=== PATIENT | female | born 1960 | race Caucasian/White ===

== ENCOUNTER 2019-06-21 08:50 | Inpatient (IN) | payer OTHER ==
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
[2019-06-21] MEDS ORDERED: BISMUTH SUBSALICYLATE 262 MG/15 ML BTL PO PRN (12:03)
[2019-06-21] MEDS ORDERED: LORazepam 1 MG TABLET PO PRN (12:03)
[2019-06-21] MEDS ORDERED: MAGNESIUM HYDROX 2400MG/30ML ORAL SUSPENSION 30 ML CUP PO PRN (12:03)
[2019-06-21] MEDS ORDERED: ACETAMINOPHEN 325 MG TABLET (FP) PO PRN (12:03)
[2019-06-21] MEDS ORDERED: MAG HYDROX/AL HYDROX/SIMETH 30 ML UNIT-DOSE CUP PO PRN (12:03)
[2019-06-21] MEDS ORDERED: MENTHOL/PHENOL 1 EACH UD MM PRN (12:03)
[2019-06-21] MEDS ORDERED: MAGNESIUM CITRATE 300 ML BOTTLE PO PRN (12:03)
[2019-06-21 12:15] VITALS: BMI 29.4
[2019-06-21] MEDS: IBUPROFEN 400 MG TABLET (FP) PO PRN ×2 (13:25→22:19)
[2019-06-21] MEDS: METHOCARBAMOL 500 MG TABLET PO PRN ×2 (13:27→22:21)
[2019-06-21] MEDS: hydrOXYzine HCL 25 MG TABLET (FP) PO PRN (13:27)
--- NOTE | 2019-06-21 13:56 | EKG ---
Test Reason : Blood Pressure : / mmHG Vent. Rate : 066 BPM Atrial Rate : 066 BPM P-R Int : 168 ms QRS Dur : 092 ms QT Int : 440 ms P-R-T Axes : 078 050 052 degrees QTc Int : 461 ms NORMAL SINUS RHYTHM NORMAL ECG NO PREVIOUS ECGS AVAILABLE Confirmed by ANNMARIE BARRETT MD ([id number]) on 06/21/2019 1:55:59 PM Referred By: Confirmed By:ANNMARIE BARRETT MD
[2019-06-21 14:32] LABS: HEMATOCRIT 40.3 % (32.4-45.2); HEMOGLOBIN 13.2 GM/dL (10.7-15.3); MCH 31.4 pg (25.7-33.7); MCHC 32.9 g/dl (32.0-36.0); MEAN CELL VOLUME 95.5 fl (80-96); MEAN PLT VOLUME 8.7 fl (7.5-11.1); PLATELET COUNT 163 K/MM3 (134-434); RBC 4.22 M/mm3 (3.60-5.2); RDW 17.9 % (11.6-15.6); WHITE BLOOD COUNT 4.7 K/mm3 (4.0-10.0)
[2019-06-21 14:54] LABS: ALBUMIN 4.1 g/dl (3.4-5.0); BILIRUBIN,TOTAL 0.6 mg/dL (0.2-1); BLOOD UREA NITROGEN 9.2 mg/dL (7-18); CALCIUM 8.7 mg/dL (8.5-10.1); CREATININE 0.6 mg/dL (0.55-1.3); POTASSIUM 4.3 mmol/L (3.5-5.1); TOT PROT 7.7 g/dl (6.4-8.2)
[2019-06-21] MEDS: LORazepam 2 MG TABLET PO SCH ×2 (18:05→22:16)
[2019-06-21] MEDS: BUPRENORPHINE/NALOXONE 8 MG/2 MG FILM PACKET SL SCH (19:43)
[2019-06-21] MEDS: MELATONIN 5 MG TABLETS PO PRN (22:17)
[2019-06-21] MEDS: THIAMINE HCL 100 MG TABLET (FP) PO SCH (22:43)
[2019-06-22] MEDS: LORazepam 2 MG TABLET PO SCH ×4 (05:22→22:26)
[2019-06-22] MEDS: BUPRENORPHINE/NALOXONE 8 MG/2 MG FILM PACKET SL SCH ×2 (05:23→18:47)
[2019-06-22] MEDS: IBUPROFEN 400 MG TABLET (FP) PO PRN ×2 (05:23→22:28)
[2019-06-22] MEDS: PRENATAL VITAMINS W/ FOLIC ACID TABLET (FP) PO SCH (10:38)
[2019-06-22] MEDS: METHOCARBAMOL 500 MG TABLET PO PRN ×2 (10:40→22:29)
--- NOTE | 2019-06-22 11:49 | PN ---
S CIWA - CIWA Score Nausea/Vomitin-No Nausea/No Vomiting Muscle Tremors: 2 Anxiety: 2 Agitation: 0-Normal Activity Paroxysmal Sweats: 3 Orientation: 0-Oriented Tacttile Disturbances: 0-None Auditory Disturbances: 0-None Visual Disturbances: 0-None Headache: 2-Mild CIWA-Ar Total Score: 9 S Progress Note (SOAP) Subjective: c/o headache, sweats, chills, and anxiety. Objective: 06/22/19 11:48 Vital Signs 06/22/19 06/22/19 07:07 09:52 Temperature 98.1 F 97.5 F L Pulse Rate 64 69 Respiratory 18 18 Rate Blood Pressure 130/82 140/77 Lab Results WBC 4.7 K/mm3 (4.0-10.0) 06/21/19 12:30 RBC 4.22 M/mm3 (3.60-5.2) 06/21/19 12:30 Hgb 13.2 GM/dL (10.7-15.3) 06/21/19 12:30 Hct 40.3 % (32.4-45.2) 06/21/19 12:30 MCV 95.5 fl (80-96) 06/21/19 12:30 MCHC 32.9 g/dl (32.0-36.0) 06/21/19 12:30 RDW 17.9 % (11.6-15.6) H 06/21/19 12:30 Plt Count 163 K/MM3 (134-434) 06/21/19 12:30 Sodium 140 mmol/L (136-145) 06/21/19 12:30 Potassium 4.3 mmol/L (3.5-5.1) 06/21/19 12:30 Chloride 103 mmol/L (98-107) 06/21/19 12:30 Carbon Dioxide 26 mmol/L (21-32) 06/21/19 12:30 Anion Gap 10 MMOL/L (8-16) 06/21/19 12:30 BUN 9.2 mg/dL (7-18) 06/21/19 12:30 Creatinine 0.6 mg/dL (0.55-1.3) 06/21/19 12:30 Random Glucose 86 mg/dL (74-106) 06/21/19 12:30 Calcium 8.7 mg/dL (8.5-10.1) 06/21/19 12:30 Labs noted. Assessment: 06/22/19 11:48 AOX3, in no acute distress. Full ROM, ambulating in the unit. Withdrawal symptoms. Plan: continue detox.
[2019-06-22] MEDS: hydrOXYzine HCL 25 MG TABLET (FP) PO PRN (16:34)
[2019-06-22] MEDS: THIAMINE HCL 100 MG TABLET (FP) PO SCH (22:27)
[2019-06-22] MEDS: MELATONIN 5 MG TABLETS PO PRN (22:29)
[2019-06-23] MEDS: BUPRENORPHINE/NALOXONE 8 MG/2 MG FILM PACKET SL SCH ×2 (05:39→18:16)
[2019-06-23] MEDS: LORazepam 1 MG TABLET PO SCH ×4 (05:39→22:48)
[2019-06-23] MEDS: METHOCARBAMOL 500 MG TABLET PO PRN ×3 (05:41→22:49)
[2019-06-23] MEDS: PRENATAL VITAMINS W/ FOLIC ACID TABLET (FP) PO SCH (10:49)
--- NOTE | 2019-06-23 17:45 | PN ---
[facility] CIWA - CIWA Score Nausea/Vomitin-Mild Nausea/No Vomiting Muscle Tremors: 3 Anxiety: 2 Agitation: 2 Paroxysmal Sweats: 3 Orientation: 0-Oriented Tacttile Disturbances: 0-None Auditory Disturbances: 0-None Visual Disturbances: 0-None Headache: 0-None Present CIWA-Ar Total Score: 11 [facility] Progress Note (SOAP) Subjective: Tremor, sweating, anxious, right foot pain (stated had xray), headache 5/10, interrupted sleep Objective: 06/23/19 17:43 Last Vital Signs Temp Pulse Resp BP Pulse Ox 97.0 F L 72 18 135/84 06/23/19 13:57 06/23/19 13:57 06/23/19 13:57 06/23/19 13:57 Elevated b/p (denies htn) Laboratory Tests 06/21/19 06/21/19 06/21/19 12:30 12:30 12:30 WBC 4.7 RBC 4.22 Hgb 13.2 Hct 40.3 MCV 95.5 MCH 31.4 MCHC 32.9 RDW 17.9 H Plt Count 163 MPV 8.7 Sodium 140 Potassium 4.3 Chloride 103 Carbon Dioxide 26 Anion Gap 10 BUN 9.2 Creatinine 0.6 Est GFR (CKD-EPI)AfAm 116.45 Est GFR (CKD-EPI)NonAf 100.47 Random Glucose 86 Calcium 8.7 Total Bilirubin 0.6 AST 35 ALT 32 Alkaline Phosphatase 124 H Total Protein 7.7 Albumin 4.1 TSH Free T4 0.81 Resin T3 Uptake RPR Titer Nonreactive 06/21/19 12:30 WBC RBC Hgb Hct MCV MCH MCHC RDW Plt Count MPV Sodium Potassium Chloride Carbon Dioxide Anion Gap BUN Creatinine Est GFR (CKD-EPI)AfAm Est GFR (CKD-EPI)NonAf Random Glucose Calcium Total Bilirubin AST ALT Alkaline Phosphatase Total Protein Albumin TSH 7.03 H Free T4 Resin T3 Uptake 33.6 RPR Titer Labs reviewed: elevated TSH Assessment: 06/23/19 17:47 Withdrawal sxs Noted with elevated TSH level Plan: Continue detox Encourage PO water intake Hypothyroidism: resume synthroid at 25mcg PO daily at 0700 (home dose unknown, as per admission H&P, patient has pmhx of hypothyroidism and stopped taking medication 1 month ago). Patient to follow up with PCP post discharge for management.
[2019-06-23] MEDS: MELATONIN 5 MG TABLETS PO PRN (22:48)
[2019-06-23] MEDS: THIAMINE HCL 100 MG TABLET (FP) PO SCH (22:48)
[2019-06-23] MEDS: ACETAMINOPHEN 325 MG TABLET (FP) PO PRN (22:49)
[2019-06-24] MEDS: LORazepam 0.5 MG TABLET PO PRN ×2 (01:48→15:52)
[2019-06-24] MEDS: LORazepam 0.5 MG TABLET PO SCH ×4 (06:15→22:27)
[2019-06-24] MEDS: ACETAMINOPHEN 325 MG TABLET (FP) PO PRN (06:16)
[2019-06-24] MEDS: BUPRENORPHINE/NALOXONE 8 MG/2 MG FILM PACKET SL SCH ×2 (06:16→19:09)
[2019-06-24] MEDS: LEVOTHYROXINE NA 25 MCG TABLET (FP) PO SCH (10:12)
[2019-06-24] MEDS: PRENATAL VITAMINS W/ FOLIC ACID TABLET (FP) PO SCH (10:12)
[2019-06-24] MEDS ORDERED: ONDANSETRON *ODT* 4 MG TABLET SL PRN (10:37)
--- NOTE | 2019-06-24 10:37 | PN ---
S CIWA - CIWA Score Nausea/Vomitin-Mild Nausea/No Vomiting Muscle Tremors: 3 Anxiety: 1-Mildly Anxious Agitation: 2 Paroxysmal Sweats: No Perspiration Orientation: 0-Oriented Tacttile Disturbances: 0-None Auditory Disturbances: 0-None Visual Disturbances: 0-None Headache: 0-None Present CIWA-Ar Total Score: 7 [facility] Progress Note (SOAP) Subjective: nausea muscle cramping Objective: 06/24/19 10:36 Vital Signs Temperature 97.2 F L 06/24/19 09:27 Pulse Rate 60 06/24/19 09:27 Respiratory Rate 18 06/24/19 09:27 Blood Pressure 114/80 06/24/19 09:27 O2 Sat by Pulse Oximetry (%) Laboratory Tests 06/21/19 06/21/19 06/21/19 12:30 12:30 12:30 WBC 4.7 RBC 4.22 Hgb 13.2 Hct 40.3 MCV 95.5 MCH 31.4 MCHC 32.9 RDW 17.9 H Plt Count 163 MPV 8.7 Sodium 140 Potassium 4.3 Chloride 103 Carbon Dioxide 26 Anion Gap 10 BUN 9.2 Creatinine 0.6 Est GFR (CKD-EPI)AfAm 116.45 Est GFR (CKD-EPI)NonAf 100.47 Random Glucose 86 Calcium 8.7 Total Bilirubin 0.6 AST 35 ALT 32 Alkaline Phosphatase 124 H Total Protein 7.7 Albumin 4.1 TSH Free T4 0.81 Resin T3 Uptake RPR Titer Nonreactive 06/21/19 12:30 WBC RBC Hgb Hct MCV MCH MCHC RDW Plt Count MPV Sodium Potassium Chloride Carbon Dioxide Anion Gap BUN Creatinine Est GFR (CKD-EPI)AfAm Est GFR (CKD-EPI)NonAf Random Glucose Calcium Total Bilirubin AST ALT Alkaline Phosphatase Total Protein Albumin TSH 7.03 H Free T4 Resin T3 Uptake 33.6 RPR Titer aaox3 lying in bed no acute distress Assessment: 06/24/19 10:36 mild withdrawal sx Plan: continue detox increase fluids flexiril 10mg tid prn ordered. d/c in am
[2019-06-24 10:54] LABS: PH,URINE 7.5 (5.0-8.0); URINE APPEARANCE CLEAR; URINE BILIRUBIN NEGATIVE (NEGATIVE); URINE COLOR YELLOW; URINE GLUCOSE (UA) NEGATIVE (NEGATIVE); URINE KETONE NEGATIVE (NEGATIVE); URINE LEUK ESTERASE NEGATIVE (NEGATIVE); URINE NITRITE NEGATIVE (NEGATIVE); URINE PROTEIN NEGATIVE (NEGATIVE); URINE UROBILINOGEN 0.2 mg/dL (0.2-1.0)
[2019-06-24] MEDS: hydrOXYzine HCL 25 MG TABLET (FP) PO PRN (15:51)
[2019-06-24] MEDS: CYCLOBENZAPRINE HCL 10 MG TABLET (FP) PO PRN (18:21)
[2019-06-24] MEDS: MELATONIN 5 MG TABLETS PO PRN (22:27)
[2019-06-24] MEDS: THIAMINE HCL 100 MG TABLET (FP) PO SCH (22:27)
[2019-06-25] MEDS ORDERED: LORazepam 0.5 MG TABLET PO ONE (05:00)
[2019-06-25] MEDS: BUPRENORPHINE/NALOXONE 8 MG/2 MG FILM PACKET SL SCH (06:05)
[2019-06-25] MEDS: CYCLOBENZAPRINE HCL 10 MG TABLET (FP) PO PRN (06:07)
[2019-06-25] MEDS: LEVOTHYROXINE NA 25 MCG TABLET (FP) PO SCH (07:30)
--- NOTE | 2019-06-25 09:27 | DS ---
[facility] Detox Discharge Summary Admission Date: 06/21/19 Discharge Date: 06/25/19 - History Present History: Alcohol Dependence - Physical Exam Results Vital Signs: Vital Signs Temperature 97.7 F 06/25/19 07:16 Pulse Rate 61 06/25/19 07:16 Respiratory Rate 20 06/25/19 07:16 Blood Pressure 115/70 06/25/19 07:16 O2 Sat by Pulse Oximetry (%) Pertinent Admission Physical Exam Findings: pt arrived in [facility] Laboratory Tests 06/21/19 06/21/19 06/21/19 12:30 12:30 12:30 WBC 4.7 RBC 4.22 Hgb 13.2 Hct 40.3 MCV 95.5 MCH 31.4 MCHC 32.9 RDW 17.9 H Plt Count 163 MPV 8.7 Sodium 140 Potassium 4.3 Chloride 103 Carbon Dioxide 26 Anion Gap 10 BUN 9.2 Creatinine 0.6 Est GFR (CKD-EPI)AfAm 116.45 Est GFR (CKD-EPI)NonAf 100.47 Random Glucose 86 Calcium 8.7 Total Bilirubin 0.6 AST 35 ALT 32 Alkaline Phosphatase 124 H Total Protein 7.7 Albumin 4.1 TSH Free T4 0.81 Resin T3 Uptake Urine Color Urine Appearance Urine pH Ur Specific Ezel Urine Protein Urine Glucose (UA) Urine Ketones Urine Blood Urine Nitrite Urine Bilirubin Urine Urobilinogen Ur Leukocyte Esterase RPR Titer Nonreactive TB (QFT) Incubation TB Test (QFT) Nil TB Test (QFT) Mitogen TB Test (QFT) Antigen TB Test (QFT) TB Positive Criteria 06/21/19 06/21/19 06/24/19 12:30 12:40 08:25 WBC RBC Hgb Hct MCV MCH MCHC RDW Plt Count MPV Sodium Potassium Chloride Carbon Dioxide Anion Gap BUN Creatinine Est GFR (CKD-EPI)AfAm Est GFR (CKD-EPI)NonAf Random Glucose Calcium Total Bilirubin AST ALT Alkaline Phosphatase Total Protein Albumin TSH 7.03 H Free T4 Resin T3 Uptake 33.6 Urine Color Yellow Urine Appearance Clear Urine pH 7.5 Ur Specific Ezel 1.018 Urine Protein Negative Urine Glucose (UA) Negative Urine Ketones Negative Urine Blood Negative Urine Nitrite Negative Urine Bilirubin Negative Urine Urobilinogen 0.2 Ur Leukocyte Esterase Negative RPR Titer TB (QFT) Incubation TB Test (QFT) Nil 0.10 TB Test (QFT) Mitogen >10.00 TB Test (QFT) Antigen 0.15 TB Test (QFT) Negative TB Positive Criteria today pt is aaox3 ambulating no acute distress no s/s of withdrawal sx - Treatment Hospital Course: Detox Protocol Followed, Detoxed Safely, Responded well, Discharged Condition Good, Rehab Referral Accepted Patient has Accepted a Rehab Referral to: pt referred to [facility] inpatient rehab - Medication Discharge Medications: Ambulatory Orders Buprenorphine HCl/Naloxone HCl [Suboxone 8 mg-2 mg Sl Tablets] 1 each SL BID 01/08 - Diagnosis (1) Alcohol dependence with uncomplicated withdrawal Current Visit: Yes Status: Chronic (2) Contusion of right foot Current Visit: Yes Status: Acute (3) Encounter for monitoring Suboxone maintenance therapy Current Visit: Yes Status: Chronic (4) Hepatitis C Current Visit: Yes Status: Chronic Qualifiers: Viral hepatitis chronicity: chronic Hepatic coma status: without hepatic coma Qualified Code(s): B18.2 - Chronic viral hepatitis C (5) History of back surgery Current Visit: Yes Status: Acute (6) History of bilateral knee replacement Current Visit: Yes Status: Acute (7) History of laparoscopic cholecystectomy Current Visit: Yes Status: Acute (8) Hypothyroidism Current Visit: Yes Status: Chronic Qualifiers: Hypothyroidism type: acquired Qualified Code(s): E03.9 - Hypothyroidism, unspecified - AMA Did Patient Leave Against Medical Advice: No
[2019-06-25 09:40] VITALS: BP 118/81; PULSE 81; TEMP 97.9
[2019-06-25] MEDS: PRENATAL VITAMINS W/ FOLIC ACID TABLET (FP) PO SCH (10:26)
[2019-06-25] MEDS: ACETAMINOPHEN 325 MG TABLET (FP) PO PRN (10:27)
[2019-06-25] MEDS: hydrOXYzine HCL 25 MG TABLET (FP) PO PRN (10:29)
== END 2019-06-25 12:38 | disposition other institution (70) | DRG 897 ==
LOC: YASAS 08:50 → Y6N 12:26
PROVIDERS: ADMIT Surgery; ATTEND Surgery
PROC: HZ2ZZZZ Detoxification Services for Substance Abuse Treatment (ICD-10-PCS; principal; 2019-06-21)
DX: F10.230 Alcohol dependence with withdrawal, uncomplicated (principal); F11.20 Opioid dependence, uncomplicated; E03.9 Hypothyroidism, unspecified; B18.2 Chronic viral hepatitis C; M79.671 Pain in right foot; S90.31XS Contusion of right foot, sequela; X58.XXXS Exposure to other specified factors, sequela
CPT/HCPCS: 36415; 73630-TC-RT-FY; 80053; 81003; 84439; 84443; 84479; 85027; 86480; 86593; 93005; 93010

== ENCOUNTER 2019-06-25 12:37 | Inpatient (IN) | payer OTHER ==
[2019-06-25] MEDS ORDERED: MENTHOL/PHENOL 1 EACH UD MM PRN (13:34)
[2019-06-25] MEDS ORDERED: ACETAMINOPHEN 325 MG TABLET (FP) PO PRN (13:34)
[2019-06-25] MEDS ORDERED: MAG HYDROX/AL HYDROX/SIMETH 30 ML UNIT-DOSE CUP PO PRN (13:34)
[2019-06-25] MEDS ORDERED: MAGNESIUM CITRATE 300 ML BOTTLE PO PRN (13:34)
[2019-06-25] MEDS ORDERED: LOPERAMIDE HCL 2 MG CAPSULE PO PRN (13:34)
[2019-06-25] MEDS ORDERED: P-EPHED 60MG/TRIPROLIDI 2.5MG TABLET PO PRN (13:34)
[2019-06-25] MEDS ORDERED: guaiFENesin 200 MG/10 ML 10 ML UNIT-DOSE CUPS PO PRN (13:34)
[2019-06-25] MEDS ORDERED: MAGNESIUM HYDROX 2400MG/30ML ORAL SUSPENSION 30 ML CUP PO PRN (13:34)
[2019-06-25] MEDS ORDERED: NICOTINE POLACRILEX 4 MG GUM BUC PRN (13:34)
--- NOTE | 2019-06-25 13:34 | HP ---
[facility] Rehab Assess/Revision - Admission History Admitted to Rehab [facility] - Findings Detox History & Physical reviewed: Yes Concur with findings: Yes Inpatient Rehab Admission - Rehab Decision to Admit Inpatient rehab admission?: Yes - Initial Determination Are CD services needed?: Yes Free of communicable disease: Yes Not in need of hospitalization: Yes - Rehab Admission Criteria Previous failed treatment: Yes Poor recovery environment: Yes Comorbidities: Yes Lacks judgement: Yes Patient is meeting Inpatient Rehab admission criteria:: Yes
[2019-06-25] MEDS: hydrOXYzine PAMOATE 50 MG CAPSULE (FP) PO PRN (17:10)
[2019-06-25] MEDS: BUPRENORPHINE/NALOXONE 8 MG/2 MG FILM PACKET SL SCH (19:06)
[2019-06-25] MEDS: IBUPROFEN 400 MG TABLET (FP) PO PRN (21:17)
[2019-06-25] MEDS: THIAMINE HCL 100 MG TABLET (FP) PO SCH (21:17)
[2019-06-25] MEDS ORDERED: MELATONIN 5 MG TABLETS PO PRN (22:00)
[2019-06-26] MEDS: LEVOTHYROXINE NA 25 MCG TABLET (FP) PO SCH (06:24)
[2019-06-26] MEDS: BUPRENORPHINE/NALOXONE 8 MG/2 MG FILM PACKET SL SCH ×2 (06:24→18:59)
[2019-06-26] MEDS: IBUPROFEN 400 MG TABLET (FP) PO PRN (06:25)
[2019-06-26] MEDS: NICOTINE 21 MG/24 HOURS TOPICAL PATCH TD SCH (10:12)
[2019-06-26] MEDS: PRENATAL VITAMINS W/ FOLIC ACID TABLET (FP) PO SCH (10:12)
[2019-06-26] MEDS: cloNIDine HCL 0.1 MG TABLET PO PRN ×2 (10:12→21:14)
[2019-06-26] MEDS: CYCLOBENZAPRINE HCL 10 MG TABLET (FP) PO SCH ×2 (13:32→21:14)
--- NOTE | 2019-06-26 14:08 | PN ---
S Progress Note (SOAP) Subjective: patient reports withdrawal symptoms. Was admitted yesterday to rehab, reports ETOH use, UTOX positive for benzodiazipine and suboxone. Presently on Suboxone , 8mg. But reporting feelings of anxiety, jittery, GI upset, generalized aches and pains. PMHx of bilateral knee replacement and chronic back pain. States she did not receive anything to relieve the withdrawal symptoms. However, review of the MAR indicates she receives vistaril, motrin, and is on suboxone. Objective: General: in no apparent distress, but anxious HEENT: PERRLA Heart: s1 s2 audible Lungs: clear Abd: soft, non-tender, +BS neuro: 2-12 intact, visible tremor in hands MSK: full ROM, full weight bearing, steady gait. 06/26/19 14:12 Assessment: Withdrawal symptoms, most likely from benzodiazpines 06/26/19 14:14 Plan: Reviewed and educated patient about medication regimen. Encouraged hydration, encouraged patient to take visteril, clonidine, motrin and other medications to alleviate symptoms as needed. Added flexeril to regimen. Will continue to monitor.
[2019-06-26] MEDS: hydrOXYzine PAMOATE 50 MG CAPSULE (FP) PO PRN (19:00)
[2019-06-26] MEDS: THIAMINE HCL 100 MG TABLET (FP) PO SCH (21:14)
[2019-06-27] MEDS: LEVOTHYROXINE NA 25 MCG TABLET (FP) PO SCH (06:33)
[2019-06-27] MEDS: CYCLOBENZAPRINE HCL 10 MG TABLET (FP) PO SCH ×3 (06:33→21:52)
[2019-06-27] MEDS: BUPRENORPHINE/NALOXONE 8 MG/2 MG FILM PACKET SL SCH ×2 (06:34→19:54)
[2019-06-27] MEDS: cloNIDine HCL 0.1 MG TABLET PO PRN ×2 (08:36→21:52)
--- NOTE | 2019-06-27 10:07 | CONSULT ---
[facility] Psychiatric Consult - Data Date of interview: 06/27/19 Admission source: 6N Identifying data: Ms Andres is a 59 years old single [place] female, unemployed receiving SSD, living with SO seeking rehab treatment for alcohol and benzodiazepine Substance Abuse History: Reports history of alcohol and xanax use. [place] addiction counselor's summary for further information Medical History: Significant for hypothyroidism, history of treatment for hepatitis C and surgeries(orhosurgery for bilateral knee replacement in 2008, left hip replacement in 2015, laminectomy in 1995 & 2013, lap cholecystectomy) Psychiatric History: Reports that her first psychiatric contact was between 1998 -1999 when she was diagnosed with depression and anxiety by a psychiatrist in [place]. Claims that depression and anxiety stemmed from chronic pain from her back. Since she has been receiving outpatient treatment on & off and she was tried of several medications including Zoloft and Paxil. Told creative services writer that for the past 8 months, she has been seeing a psychiatrist in the [place] and She is prescribed Suboxone and Xanax. Claims that she has been taking xanax as prescribe but wants to get off it. Denies previous psychiatric hospitalization or suicidal attempt. At present, reports feeling depressed, anxious and sleeping poorly Physical/Sexual Abuse/Trauma History: Denies history of emotional, physical or sexual abuse as well as DV relationship. Additional Comment: Reports history of 4 previous arrests including one felony conviction. Told creative services writer that she has a DUI case pending Mental Status Exam - Mental Status Exam Alert and Oriented to: Time, Place, Person Cognitive Function: Fair Patient Appearance: Well Groomed Mood: Depressed, Anxious Affect: Appropriate Patient Behavior: Cooperative Speech Pattern: Clear Voice Loudness: Normal Thought Process: Intact, Goal Oriented Thought Disorder: Not Present Hallucinations: Denies Suicidal Ideation: Denies Homicidal Ideation: Denies Insight/Judgement: Fair Sleep: Poorly Appetite: Poor Muscle strength/Tone: Normal Gait/Station: Normal Psychiatric Findings - Problem List ([place] 1, 2,3) (1) Depressive disorder Current Visit: Yes Status: Chronic (2) MDD (major depressive disorder) Current Visit: Yes Status: Ruled-out (3) Alcohol-induced mood disorder Current Visit: Yes Status: Acute (4) Alcohol-induced sleep disorder Current Visit: Yes Status: Acute (5) Alcohol dependence Current Visit: Yes Status: Acute (6) Sedative hypnotic or anxiolytic dependence Current Visit: Yes Status: Acute (7) History of back surgery Current Visit: No Status: Resolved (8) History of bilateral knee replacement Current Visit: No Status: Resolved (9) History of laparoscopic cholecystectomy Current Visit: No Status: Resolved (10) Hepatitis C Current Visit: No Status: Resolved Qualifiers: Viral hepatitis chronicity: chronic Hepatic coma status: without hepatic coma Qualified Code(s): B18.2 - Chronic viral hepatitis C (11) Hypothyroidism Current Visit: No Status: Chronic Qualifiers: Hypothyroidism type: acquired Qualified Code(s): E03.9 - Hypothyroidism, unspecified - Initial Treatment Plan Initial Treatment Plan: 1) Start Belsomra 10 mg po HS prn for insomnia. 2) Continue inpatient rehabilitation
[2019-06-27] MEDS: NICOTINE 21 MG/24 HOURS TOPICAL PATCH TD SCH (10:08)
[2019-06-27] MEDS: PRENATAL VITAMINS W/ FOLIC ACID TABLET (FP) PO SCH (10:08)
[2019-06-27] MEDS: hydrOXYzine PAMOATE 50 MG CAPSULE (FP) PO PRN ×2 (10:29→21:52)
[2019-06-27] MEDS: THIAMINE HCL 100 MG TABLET (FP) PO SCH (21:52)
[2019-06-27] MEDS ORDERED: SUVOREXANT 10 MG TABLET PO PRN (22:00)
[2019-06-28] MEDS: CYCLOBENZAPRINE HCL 10 MG TABLET (FP) PO SCH (06:25)
[2019-06-28] MEDS: BUPRENORPHINE/NALOXONE 8 MG/2 MG FILM PACKET SL SCH (06:25)
[2019-06-28] MEDS: LEVOTHYROXINE NA 25 MCG TABLET (FP) PO SCH (06:25)
[2019-06-28] MEDS: hydrOXYzine PAMOATE 50 MG CAPSULE (FP) PO PRN ×2 (06:26→10:46)
[2019-06-28 06:51] VITALS: BP 132/88; PULSE 81; TEMP 97.7
[2019-06-28] MEDS: NICOTINE 21 MG/24 HOURS TOPICAL PATCH TD SCH (10:07)
[2019-06-28] MEDS: cloNIDine HCL 0.1 MG TABLET PO PRN (10:10)
[2019-06-28] MEDS: PRENATAL VITAMINS W/ FOLIC ACID TABLET (FP) PO SCH (10:11)
--- NOTE | 2019-06-28 11:37 | PN ---
[facility] Progress Note (SOAP) Subjective: Informed by nurse richy that patient is for early discharge today due to insurance recommendation eligibiliy of follow up with OPD program. Pt completed detox for alcohol on on 06/25/19 before seeking treatment to rehab. Pt has a suboxone provider/psychiatrist Dr. Dodw. Pt will follow up with clinic visit today stating she is due for a visit. Pt reports she has other meds at home. Pt denies s/h/i. Objective: 06/28/19 11:29 Vital Signs - 24 hr 06/28/19 06/28/19 06/28/19 00:30 03:27 06:00 Temperature 97.7 F Pulse Rate 81 Respiratory 18 18 18 Rate Blood Pressure 132/88 Home Medications Medication Instructions Recorded Buprenorphine HCl/Naloxone HCl 1 each SL BID 06/21/19 [Suboxone 8 mg-2 mg Sl Tablets] Levothyroxine Sodium 25 mcg PO DAILY 06/25/19 Pt is alert o x 3, slightly anxious. Heent:Normocephalic, Patricia,Eomi,Ent-wnl Neck:Supple, FROM; No JVD Heart:s1 s2, rrr Lungs:cta, raina. Abdomen:Soft,+bs,nt,nd Extremities:No e/c/c Assessment: 06/28/19 11:33 Nad Medically Stable [facility] Inpatient Services Medical - Diagnosis (1) Alcohol dependence Qualifiers: Substance use status: uncomplicated Qualified Code(s): F10.20 - Alcohol dependence, uncomplicated Current Visit: Yes Status: Chronic (2) Sedative hypnotic or anxiolytic dependence Current Visit: Yes Status: Chronic (3) Encounter for monitoring Suboxone maintenance therapy Current Visit: Yes Status: Chronic (4) Hypothyroidism Qualifiers: Hypothyroidism type: acquired Qualified Code(s): E03.9 - Hypothyroidism, unspecified Current Visit: No Status: Chronic (5) Hepatitis C Qualifiers: Viral hepatitis chronicity: chronic Hepatic coma status: without hepatic coma Qualified Code(s): B18.2 - Chronic viral hepatitis C Current Visit: Yes Status: Resolved (6) History of bilateral knee replacement Current Visit: Yes Status: Resolved (7) History of laparoscopic cholecystectomy Current Visit: Yes Status: Resolved Initialized on 06/28/19 11:37 - END OF NOTE Plan: Early D/C today Pt will Follow up with suboxone prescriber, Dr. Dowd [facility] [address] [place], [place] today after discharge for clinic visit and for her RX. Follow up with CD aftercare at [facility] program as recommended on .
== END 2019-06-28 11:18 | disposition home or self-care (01) | DRG 895 ==
LOC: YASAS 12:37 → Y3E 12:42
PROVIDERS: ADMIT Neuromusculoskeletal Medicine & OMM; ATTEND Neuromusculoskeletal Medicine & OMM
PROC: HZ42ZZZ Group Counseling for Substance Abuse Treatment, Cognitive-Behavioral (ICD-10-PCS; principal; 2019-06-25)
DX: F10.20 Alcohol dependence, uncomplicated (principal); F13.20 Sedative, hypnotic or anxiolytic dependence, uncomplicated; F11.20 Opioid dependence, uncomplicated; F10.24 Alcohol dependence with alcohol-induced mood disorder; F10.282 Alcohol dependence with alcohol-induced sleep disorder; F32.9 Major depressive disorder, single episode, unspecified; E03.9 Hypothyroidism, unspecified; B18.2 Chronic viral hepatitis C; Z96.653 Presence of artificial knee joint, bilateral
CPT/HCPCS: J0735

== ENCOUNTER 2021-04-10 14:42 | Inpatient (IN) | payer OTHER ==
[2021-04-10] MEDS ORDERED: BISMUTH SUBSALICYLATE 524 MG/30 ML PO PRN (19:02)
[2021-04-10] MEDS ORDERED: MENTHOL/PHENOL 1 EACH UD MM PRN (19:02)
[2021-04-10] MEDS ORDERED: ONDANSETRON *ODT* 4 MG TABLET SL PRN (19:02)
[2021-04-10] MEDS ORDERED: ACETAMINOPHEN 325 MG TABLET (FP) PO PRN ×2 (19:02)
[2021-04-10] MEDS ORDERED: MAG HYDROX/AL HYDROX/SIMETH 30 ML UNIT-DOSE CUP PO PRN (19:02)
[2021-04-10] MEDS ORDERED: IBUPROFEN 400 MG TABLET (FP) PO PRN (19:02)
[2021-04-10] MEDS ORDERED: MAGNESIUM CITRATE 300 ML BOTTLE PO PRN (19:02)
[2021-04-10] MEDS ORDERED: MAGNESIUM HYDROX 2400MG/30ML ORAL SUSPENSION 30 ML CUP PO PRN (19:02)
[2021-04-10 21:00] VITALS: BMI 27.7
[2021-04-10] MEDS: LORazepam 2 MG TABLET PO SCH (22:40)
[2021-04-10] MEDS: hydrOXYzine PAMOATE 25 MG CAPSULE (FP) PO SCH (22:41)
[2021-04-10] MEDS: THIAMINE HCL 100 MG TABLET (FP) PO SCH (22:41)
[2021-04-10] MEDS: MELATONIN 5 MG TABLETS PO SCH (22:41)
[2021-04-10] MEDS: BUPRENORPHINE/NALOXONE 8 MG/2 MG FILM PACKET SL SCH (22:41)
[2021-04-10] MEDS: GABAPENTIN 300 MG CAPSULE PO SCH (22:41)
[2021-04-11] MEDS ORDERED: GABAPENTIN 300 MG CAPSULE PO ONE (09:13)
[2021-04-11] MEDS ORDERED: LORazepam 1 MG TABLET ONE (09:15)
[2021-04-11] MEDS ORDERED: IBUPROFEN 400 MG TABLET (FP) PO ONE (09:15)
[2021-04-11] MEDS: LORazepam 1 MG TABLET PO PRN (09:19)
[2021-04-11 11:06] LABS: HEMOGLOBIN 10.5 GM/dL (10.7-15.3); MCH 30.4 pg (25.7-33.7); MCHC 32.8 g/dl (32.0-36.0); MEAN CELL VOLUME 92.6 fl (80-96); MEAN PLT VOLUME 9.2 fl (7.5-11.1); PLATELET COUNT 241 K/MM3 (134-434); RBC 3.46 M/mm3 (3.60-5.2); RDW 16.7 % (11.6-15.6)
[2021-04-11 11:11] LABS: CALCIUM 8.5 mg/dL (8.5-10.1)
[2021-04-11 11:12] LABS: ALBUMIN 3.3 g/dl (3.4-5.0); BLOOD UREA NITROGEN 10.2 mg/dL (7-18)
[2021-04-11 11:15] LABS: CREATININE 0.5 mg/dL (0.55-1.3)
[2021-04-11 11:16] LABS: BILIRUBIN,TOTAL 0.5 mg/dL (0.2-1)
[2021-04-11] MEDS: PRENATAL VITAMINS W/ FOLIC ACID TABLET (FP) PO SCH (12:14)
[2021-04-11] MEDS: hydrOXYzine PAMOATE 25 MG CAPSULE (FP) PO SCH ×5 (12:15→22:11)
[2021-04-11] MEDS: LORazepam 2 MG TABLET PO SCH ×4 (12:16→22:12)
[2021-04-11] MEDS: GABAPENTIN 300 MG CAPSULE PO SCH ×3 (12:16→22:12)
[2021-04-11] MEDS: LEVOTHYROXINE NA 125 MCG TABLET (FP) PO SCH ×2 (12:17→15:35)
[2021-04-11] MEDS: METHOCARBAMOL 500 MG TABLET PO PRN (12:18)
[2021-04-11] MEDS: BUPRENORPHINE/NALOXONE 8 MG/2 MG FILM PACKET SL SCH ×3 (12:19→22:10)
[2021-04-11] MEDS: ROSUVASTATIN CA 5 MG TABLET (FP) PO SCH ×2 (14:09→15:30)
[2021-04-11] MEDS: THIAMINE HCL 100 MG TABLET (FP) PO SCH (22:11)
[2021-04-11] MEDS: MELATONIN 5 MG TABLETS PO SCH (22:11)
[2021-04-12] MEDS: GABAPENTIN 300 MG CAPSULE PO SCH ×3 (05:48→22:43)
[2021-04-12] MEDS: hydrOXYzine PAMOATE 25 MG CAPSULE (FP) PO SCH ×3 (05:48→13:03)
[2021-04-12] MEDS: LORazepam 1 MG TABLET PO SCH ×4 (05:49→22:43)
[2021-04-12] MEDS: LEVOTHYROXINE NA 125 MCG TABLET (FP) PO SCH (07:54)
[2021-04-12] MEDS ORDERED: ESCITALOPRAM OXALATE 10 MG TABLET ONE (09:01)
[2021-04-12] MEDS: ESCITALOPRAM OXALATE 20 MG TABLET PO SCH (09:18)
[2021-04-12] MEDS: METHOCARBAMOL 500 MG TABLET PO PRN ×2 (09:19→17:48)
[2021-04-12] MEDS: PRENATAL VITAMINS W/ FOLIC ACID TABLET (FP) PO SCH (09:19)
[2021-04-12] MEDS: BUPRENORPHINE/NALOXONE 8 MG/2 MG FILM PACKET SL SCH ×2 (09:19→22:46)
[2021-04-12] MEDS: LEVOTHYROXINE 100 MCG, LEVOTHYROXINE 25 MCG PO SCH (10:00)
[2021-04-12] MEDS: ROSUVASTATIN CA 5 MG TABLET (FP) PO SCH (10:00)
[2021-04-12] MEDS: IBUPROFEN 600 MG TABLET (FP) PO PRN (13:03)
[2021-04-12] MEDS: LORazepam 1 MG TABLET PO PRN ×2 (13:04→20:53)
[2021-04-12] MEDS ORDERED: hydrOXYzine PAMOATE 25 MG CAPSULE (FP) PO PRN (15:19)
[2021-04-12 20:34] LABS: PH,URINE 6.5 (5.0-8.0); URINE APPEARANCE CLEAR; URINE BILIRUBIN NEGATIVE (NEGATIVE); URINE COLOR YELLOW; URINE GLUCOSE (UA) NEGATIVE (NEGATIVE); URINE KETONE NEGATIVE (NEGATIVE); URINE LEUK ESTERASE NEGATIVE (NEGATIVE); URINE NITRITE NEGATIVE (NEGATIVE); URINE PROTEIN NEGATIVE (NEGATIVE); URINE UROBILINOGEN 0.2 mg/dL (0.2-1.0)
[2021-04-12] MEDS: THIAMINE HCL 100 MG TABLET (FP) PO SCH (22:43)
[2021-04-12] MEDS: MELATONIN 5 MG TABLETS PO SCH (22:43)
[2021-04-13] MEDS ORDERED: LORazepam 0.5 MG TABLET PO PRN
[2021-04-13] MEDS: LORazepam 0.5 MG TABLET PO SCH ×4 (05:45→22:04)
[2021-04-13] MEDS: GABAPENTIN 300 MG CAPSULE PO SCH ×3 (05:46→22:04)
[2021-04-13 06:08] LABS: SARS-CoV-2 NAA Not Detected (Not Detected)
[2021-04-13] MEDS: LEVOTHYROXINE 100 MCG, LEVOTHYROXINE 25 MCG PO SCH (08:10)
[2021-04-13] MEDS ORDERED: ESCITALOPRAM OXALATE 10 MG TABLET ONE (09:13)
[2021-04-13] MEDS: ESCITALOPRAM OXALATE 20 MG TABLET PO SCH (10:37)
[2021-04-13] MEDS: ROSUVASTATIN CA 5 MG TABLET (FP) PO SCH (10:37)
[2021-04-13] MEDS: BUPRENORPHINE/NALOXONE 8 MG/2 MG FILM PACKET SL SCH ×2 (10:38→22:05)
[2021-04-13] MEDS: PRENATAL VITAMINS W/ FOLIC ACID TABLET (FP) PO SCH (10:39)
[2021-04-13] MEDS ORDERED: MASKS NR ONE (20:05)
[2021-04-13] MEDS: MELATONIN 5 MG TABLETS PO SCH (22:04)
[2021-04-13] MEDS: THIAMINE HCL 100 MG TABLET (FP) PO SCH (22:05)
[2021-04-14] MEDS ORDERED: LORazepam 0.5 MG TABLET PO ONE (05:00)
[2021-04-14] MEDS: GABAPENTIN 300 MG CAPSULE PO SCH (06:01)
[2021-04-14] MEDS: LEVOTHYROXINE 100 MCG, LEVOTHYROXINE 25 MCG PO SCH (06:02)
[2021-04-14 08:45] VITALS: BP 124/69; PULSE 71; TEMP 96.8
[2021-04-14] MEDS: PRENATAL VITAMINS W/ FOLIC ACID TABLET (FP) PO SCH (09:38)
[2021-04-14] MEDS: BUPRENORPHINE/NALOXONE 8 MG/2 MG FILM PACKET SL SCH (09:38)
[2021-04-14] MEDS: ROSUVASTATIN CA 5 MG TABLET (FP) PO SCH (09:38)
[2021-04-14] MEDS: ESCITALOPRAM OXALATE 20 MG TABLET PO SCH (09:38)
[2021-04-14] MEDS: METHOCARBAMOL 500 MG TABLET PO PRN (12:38)
[2021-04-14] MEDS: IBUPROFEN 600 MG TABLET (FP) PO PRN (12:38)
== END 2021-04-14 12:40 | disposition other institution (70) | DRG 897 ==
LOC: YASAS 14:42 → Y3N 04-11 09:05
PROVIDERS: ADMIT Allergy & Immunology; ATTEND Allergy & Immunology
PROC: HZ2ZZZZ Detoxification Services for Substance Abuse Treatment (ICD-10-PCS; principal; 2021-04-11)
DX: F10.230 Alcohol dependence with withdrawal, uncomplicated (principal); F13.20 Sedative, hypnotic or anxiolytic dependence, uncomplicated; F10.280 Alcohol dependence with alcohol-induced anxiety disorder; F10.282 Alcohol dependence with alcohol-induced sleep disorder; F10.24 Alcohol dependence with alcohol-induced mood disorder; F32.9 Major depressive disorder, single episode, unspecified; Z21 Asymptomatic human immunodeficiency virus [HIV] infection status; B18.2 Chronic viral hepatitis C; E03.9 Hypothyroidism, unspecified; M54.5 Low back pain; G89.29 Other chronic pain; Z96.643 Presence of artificial hip joint, bilateral; Z98.890 Other specified postprocedural states; Z87.891 Personal history of nicotine dependence; Z51.81 Encounter for therapeutic drug level monitoring; Z90.49 Acquired absence of other specified parts of digestive tract
CPT/HCPCS: 36415; 80053; 81003; 85027; 86780; C9803; Q0162; U0003; U0005

== ENCOUNTER 2021-04-14 13:41 | Inpatient (IN) | payer OTHER ==
[2021-04-14] MEDS ORDERED: guaiFENesin 200 MG/10 ML 10 ML UNIT-DOSE CUPS PO PRN (15:10)
[2021-04-14] MEDS ORDERED: MAGNESIUM HYDROX 2400MG/30ML ORAL SUSPENSION 30 ML CUP PO PRN (15:10)
[2021-04-14] MEDS ORDERED: MAG HYDROX/AL HYDROX/SIMETH 30 ML UNIT-DOSE CUP PO PRN (15:10)
[2021-04-14] MEDS ORDERED: P-EPHED 60MG/TRIPROLIDI 2.5MG TABLET PO PRN (15:10)
[2021-04-14] MEDS ORDERED: LOPERAMIDE HCL 2 MG CAPSULE PO PRN (15:10)
[2021-04-14] MEDS ORDERED: MENTHOL/PHENOL 1 EACH UD MM PRN (15:10)
[2021-04-14] MEDS ORDERED: hydrOXYzine PAMOATE 25 MG CAPSULE (FP) PO PRN (15:10)
[2021-04-14] MEDS ORDERED: MAGNESIUM CITRATE 300 ML BOTTLE PO PRN (15:10)
[2021-04-14] MEDS: THIAMINE HCL 100 MG TABLET (FP) PO SCH (21:03)
[2021-04-14] MEDS: MELATONIN 5 MG TABLETS PO SCH (21:03)
[2021-04-14] MEDS: GABAPENTIN 300 MG CAPSULE PO SCH (21:03)
[2021-04-14] MEDS: IBUPROFEN 400 MG TABLET (FP) PO PRN (21:04)
[2021-04-14] MEDS: BUPRENORPHINE/NALOXONE 8 MG/2 MG FILM PACKET SL SCH (21:05)
[2021-04-15] MEDS: LEVOTHYROXINE 25 MCG, LEVOTHYROXINE 100 MCG PO SCH (06:12)
[2021-04-15] MEDS: GABAPENTIN 300 MG CAPSULE PO SCH ×3 (06:12→21:09)
[2021-04-15] MEDS ORDERED: LEVOTHYROXINE NA 125 MCG TABLET (FP) PO SCH (10:00)
[2021-04-15] MEDS: PRENATAL VITAMINS W/ FOLIC ACID TABLET (FP) PO SCH (10:29)
[2021-04-15] MEDS: ESCITALOPRAM OXALATE 20 MG TABLET PO SCH (10:29)
[2021-04-15] MEDS: ROSUVASTATIN CA 5 MG TABLET (FP) PO SCH (10:30)
[2021-04-15] MEDS: BUPRENORPHINE/NALOXONE 8 MG/2 MG FILM PACKET SL SCH ×2 (10:30→21:09)
[2021-04-15] MEDS: IBUPROFEN 400 MG TABLET (FP) PO PRN ×2 (10:32→21:09)
[2021-04-15] MEDS ORDERED: PNEUMOC 13-VAL CONJ-DIP CRM/PF 0.5 ML DISP.SYRIN IM ONE (12:00)
[2021-04-15] MEDS ORDERED: PNEUMOCOCCAL 23 VACCINE 0.5 ML VIAL IM ONE (12:00)
[2021-04-15] MEDS: METHOCARBAMOL 500 MG TABLET PO PRN ×2 (17:34→21:09)
[2021-04-15] MEDS: THIAMINE HCL 100 MG TABLET (FP) PO SCH (21:09)
[2021-04-15] MEDS: MELATONIN 5 MG TABLETS PO SCH (21:10)
[2021-04-16] MEDS: METHOCARBAMOL 500 MG TABLET PO PRN ×3 (06:24→18:09)
[2021-04-16] MEDS: IBUPROFEN 400 MG TABLET (FP) PO PRN ×2 (06:24→13:14)
[2021-04-16] MEDS: GABAPENTIN 300 MG CAPSULE PO SCH ×3 (06:24→21:41)
[2021-04-16] MEDS ORDERED: PT OWN MED DRAWER 7, Y5N ONE ×2 (06:27→21:51)
[2021-04-16] MEDS: LEVOTHYROXINE 25 MCG, LEVOTHYROXINE 100 MCG PO SCH (06:27)
[2021-04-16] MEDS: PRENATAL VITAMINS W/ FOLIC ACID TABLET (FP) PO SCH (10:39)
[2021-04-16] MEDS: ESCITALOPRAM OXALATE 20 MG TABLET PO SCH (10:39)
[2021-04-16] MEDS: BUPRENORPHINE/NALOXONE 8 MG/2 MG FILM PACKET SL SCH ×2 (10:40→21:41)
[2021-04-16] MEDS: ROSUVASTATIN CA 5 MG TABLET (FP) PO SCH (10:41)
[2021-04-16] MEDS: MELATONIN 5 MG TABLETS PO SCH (21:41)
[2021-04-16] MEDS: THIAMINE HCL 100 MG TABLET (FP) PO SCH (21:41)
[2021-04-17] MEDS ORDERED: PT OWN MED DRAWER 7, Y5N ONE ×2 (05:15→10:48)
[2021-04-17] MEDS: METHOCARBAMOL 500 MG TABLET PO PRN ×3 (06:27→21:17)
[2021-04-17] MEDS: GABAPENTIN 300 MG CAPSULE PO SCH ×3 (06:27→21:17)
[2021-04-17] MEDS: IBUPROFEN 400 MG TABLET (FP) PO PRN ×3 (06:28→21:17)
[2021-04-17] MEDS: LEVOTHYROXINE 25 MCG, LEVOTHYROXINE 100 MCG PO SCH (06:28)
[2021-04-17] MEDS: ESCITALOPRAM OXALATE 20 MG TABLET PO SCH (10:26)
[2021-04-17] MEDS: BUPRENORPHINE/NALOXONE 8 MG/2 MG FILM PACKET SL SCH ×2 (10:26→21:17)
[2021-04-17] MEDS: PRENATAL VITAMINS W/ FOLIC ACID TABLET (FP) PO SCH (10:26)
[2021-04-17] MEDS: ROSUVASTATIN CA 5 MG TABLET (FP) PO SCH (10:27)
[2021-04-17] MEDS: THIAMINE HCL 100 MG TABLET (FP) PO SCH (21:17)
[2021-04-17] MEDS: MELATONIN 5 MG TABLETS PO SCH (21:17)
[2021-04-18] MEDS: METHOCARBAMOL 500 MG TABLET PO PRN ×3 (06:22→21:49)
[2021-04-18] MEDS: IBUPROFEN 400 MG TABLET (FP) PO PRN ×2 (06:22→12:33)
[2021-04-18] MEDS: GABAPENTIN 300 MG CAPSULE PO SCH ×3 (06:22→21:49)
[2021-04-18] MEDS: LEVOTHYROXINE 25 MCG, LEVOTHYROXINE 100 MCG PO SCH (06:26)
[2021-04-18] MEDS ORDERED: PT OWN MED DRAWER 7, Y5N ONE ×2 (06:26→12:23)
[2021-04-18] MEDS: ESCITALOPRAM OXALATE 20 MG TABLET PO SCH (10:18)
[2021-04-18] MEDS: PRENATAL VITAMINS W/ FOLIC ACID TABLET (FP) PO SCH (10:18)
[2021-04-18] MEDS: BUPRENORPHINE/NALOXONE 8 MG/2 MG FILM PACKET SL SCH ×2 (10:18→21:51)
[2021-04-18] MEDS: ROSUVASTATIN CA 5 MG TABLET (FP) PO SCH (10:18)
[2021-04-18] MEDS: ACETAMINOPHEN 325 MG TABLET (FP) PO PRN (19:00)
[2021-04-18] MEDS: MELATONIN 5 MG TABLETS PO SCH (21:49)
[2021-04-18] MEDS: THIAMINE HCL 100 MG TABLET (FP) PO SCH (21:49)
[2021-04-19] MEDS: IBUPROFEN 400 MG TABLET (FP) PO PRN ×2 (06:14→21:15)
[2021-04-19] MEDS: GABAPENTIN 300 MG CAPSULE PO SCH ×3 (06:14→21:15)
[2021-04-19] MEDS: LEVOTHYROXINE 25 MCG, LEVOTHYROXINE 100 MCG PO SCH (06:14)
[2021-04-19] MEDS: METHOCARBAMOL 500 MG TABLET PO PRN ×3 (06:14→21:15)
[2021-04-19 10:11] LABS: SARS-CoV-2 NAA Not Detected (Not Detected)
[2021-04-19] MEDS: BUPRENORPHINE/NALOXONE 8 MG/2 MG FILM PACKET SL SCH ×2 (10:41→21:17)
[2021-04-19] MEDS: ESCITALOPRAM OXALATE 20 MG TABLET PO SCH (10:41)
[2021-04-19] MEDS: ROSUVASTATIN CA 5 MG TABLET (FP) PO SCH (10:41)
[2021-04-19] MEDS: PRENATAL VITAMINS W/ FOLIC ACID TABLET (FP) PO SCH (10:41)
[2021-04-19] MEDS: ACETAMINOPHEN 325 MG TABLET (FP) PO PRN (10:43)
[2021-04-19] MEDS: MELATONIN 5 MG TABLETS PO SCH (21:15)
[2021-04-19] MEDS: THIAMINE HCL 100 MG TABLET (FP) PO SCH (21:15)
[2021-04-20] MEDS: LEVOTHYROXINE 25 MCG, LEVOTHYROXINE 100 MCG PO SCH (06:22)
[2021-04-20] MEDS: GABAPENTIN 300 MG CAPSULE PO SCH ×3 (06:23→21:39)
[2021-04-20] MEDS: IBUPROFEN 400 MG TABLET (FP) PO PRN ×3 (06:24→21:38)
[2021-04-20] MEDS: METHOCARBAMOL 500 MG TABLET PO PRN ×3 (06:24→21:37)
[2021-04-20] MEDS: PRENATAL VITAMINS W/ FOLIC ACID TABLET (FP) PO SCH (10:24)
[2021-04-20] MEDS: ESCITALOPRAM OXALATE 20 MG TABLET PO SCH (10:24)
[2021-04-20] MEDS: BUPRENORPHINE/NALOXONE 8 MG/2 MG FILM PACKET SL SCH ×2 (10:24→21:38)
[2021-04-20] MEDS: ACETAMINOPHEN 325 MG TABLET (FP) PO PRN (10:26)
[2021-04-20] MEDS: ROSUVASTATIN CA 5 MG TABLET (FP) PO SCH (10:26)
[2021-04-20] MEDS: THIAMINE HCL 100 MG TABLET (FP) PO SCH (21:37)
[2021-04-20] MEDS: MELATONIN 5 MG TABLETS PO SCH (21:37)
[2021-04-20] MEDS ORDERED: PT OWN MED DRAWER 7, Y5N ONE (21:54)
[2021-04-21] MEDS: IBUPROFEN 400 MG TABLET (FP) PO PRN ×3 (06:11→21:18)
[2021-04-21] MEDS: METHOCARBAMOL 500 MG TABLET PO PRN ×3 (06:11→21:19)
[2021-04-21] MEDS: GABAPENTIN 300 MG CAPSULE PO SCH ×3 (06:11→21:19)
[2021-04-21] MEDS ORDERED: LEVOTHYROXINE NA 25 MCG TABLET (FP) ONE (07:11)
[2021-04-21] MEDS ORDERED: LEVOTHYROXINE NA 100 MCG TABLET (FP) ONE (07:11)
[2021-04-21] MEDS: LEVOTHYROXINE 25 MCG, LEVOTHYROXINE 100 MCG PO SCH (07:18)
[2021-04-21] MEDS ORDERED: PT OWN MED DRAWER 7, Y5N ONE (09:10)
[2021-04-21] MEDS: PRENATAL VITAMINS W/ FOLIC ACID TABLET (FP) PO SCH (10:02)
[2021-04-21] MEDS: BUPRENORPHINE/NALOXONE 8 MG/2 MG FILM PACKET SL SCH ×2 (10:03→21:21)
[2021-04-21] MEDS: ROSUVASTATIN CA 5 MG TABLET (FP) PO SCH (10:03)
[2021-04-21] MEDS: ESCITALOPRAM OXALATE 20 MG TABLET PO SCH (10:03)
[2021-04-21] MEDS: MELATONIN 5 MG TABLETS PO SCH (21:19)
[2021-04-21] MEDS: THIAMINE HCL 100 MG TABLET (FP) PO SCH (21:21)
[2021-04-22] MEDS ORDERED: PT OWN MED DRAWER 7, Y5N ONE (03:26)
[2021-04-22] MEDS: METHOCARBAMOL 500 MG TABLET PO PRN ×3 (06:18→21:53)
[2021-04-22] MEDS: GABAPENTIN 300 MG CAPSULE PO SCH ×3 (06:19→21:55)
[2021-04-22] MEDS: IBUPROFEN 400 MG TABLET (FP) PO PRN ×3 (06:19→21:53)
[2021-04-22] MEDS: LEVOTHYROXINE 25 MCG, LEVOTHYROXINE 100 MCG PO SCH (06:20)
[2021-04-22] MEDS: PRENATAL VITAMINS W/ FOLIC ACID TABLET (FP) PO SCH (10:27)
[2021-04-22] MEDS: BUPRENORPHINE/NALOXONE 8 MG/2 MG FILM PACKET SL SCH ×2 (10:28→21:58)
[2021-04-22] MEDS: ROSUVASTATIN CA 5 MG TABLET (FP) PO SCH (10:28)
[2021-04-22] MEDS: ESCITALOPRAM OXALATE 20 MG TABLET PO SCH (10:28)
[2021-04-22] MEDS: ACETAMINOPHEN 325 MG TABLET (FP) PO PRN (10:28)
[2021-04-22] MEDS: MELATONIN 5 MG TABLETS PO SCH (21:53)
[2021-04-22] MEDS: THIAMINE HCL 100 MG TABLET (FP) PO SCH (21:55)
[2021-04-23] MEDS: GABAPENTIN 300 MG CAPSULE PO SCH (06:39)
[2021-04-23] MEDS: LEVOTHYROXINE 25 MCG, LEVOTHYROXINE 100 MCG PO SCH (06:39)
[2021-04-23] MEDS: IBUPROFEN 400 MG TABLET (FP) PO PRN (06:39)
[2021-04-23] MEDS: METHOCARBAMOL 500 MG TABLET PO PRN (06:39)
[2021-04-23 07:30] VITALS: BP 147/81; PULSE 65; TEMP 96
[2021-04-23] MEDS ORDERED: PT OWN MED DRAWER 7, Y5N ONE (09:26)
[2021-04-23] MEDS: PRENATAL VITAMINS W/ FOLIC ACID TABLET (FP) PO SCH (09:27)
[2021-04-23] MEDS: ESCITALOPRAM OXALATE 20 MG TABLET PO SCH (09:28)
[2021-04-23] MEDS: ROSUVASTATIN CA 5 MG TABLET (FP) PO SCH (09:28)
[2021-04-23] MEDS: BUPRENORPHINE/NALOXONE 8 MG/2 MG FILM PACKET SL SCH (09:28)
== END 2021-04-23 09:40 | disposition home or self-care (01) | DRG 895 ==
LOC: YASAS 13:41 → Y5N 13:42
PROVIDERS: ADMIT Allergy & Immunology; ATTEND Allergy & Immunology
PROC: HZ42ZZZ Group Counseling for Substance Abuse Treatment, Cognitive-Behavioral (ICD-10-PCS; principal; 2021-04-14)
DX: F10.20 Alcohol dependence, uncomplicated (principal); F13.20 Sedative, hypnotic or anxiolytic dependence, uncomplicated; F41.8 Other specified anxiety disorders; F32.9 Major depressive disorder, single episode, unspecified; E03.9 Hypothyroidism, unspecified; Z87.828 Personal history of other (healed) physical injury and trauma; Z51.81 Encounter for therapeutic drug level monitoring
CPT/HCPCS: 90732; C9803; G0009; U0003; U0005

== ENCOUNTER 2022-03-29 13:39 | Inpatient (IN) | payer OTHER ==
[2022-03-29] MEDS ORDERED: DICYCLOMINE HCL 10 MG CAPSULE PO PRN (14:57)
[2022-03-29] MEDS ORDERED: BISMUTH SUBSALICYLATE 524 MG/30 ML PO PRN (14:57)
[2022-03-29] MEDS ORDERED: NICOTINE 10 MG CARTRIDGE (INHALER) IH PRN (14:57)
[2022-03-29] MEDS ORDERED: MAGNESIUM HYDROX 2400MG/30ML ORAL SUSPENSION 30 ML CUP PO PRN (14:57)
[2022-03-29] MEDS ORDERED: ACETAMINOPHEN 325 MG TABLET (FP) PO PRN ×2 (14:57)
[2022-03-29] MEDS ORDERED: MAG HYDROX/AL HYDROX/SIMETH 30 ML UNIT-DOSE CUP PO PRN (14:57)
[2022-03-29] MEDS ORDERED: MAGNESIUM CITRATE 300 ML BOTTLE PO PRN (14:57)
[2022-03-29] MEDS ORDERED: ONDANSETRON *ODT* 4 MG TABLET SL PRN (14:57)
[2022-03-29] MEDS ORDERED: LOPERAMIDE HCL 2 MG CAPSULE PO PRN (14:57)
[2022-03-29] MEDS ORDERED: IBUPROFEN 400 MG TABLET (FP) PO PRN (14:57)
[2022-03-29] MEDS: chlordiazePOXIDE HCL 25 MG CAPSULE PO SCH ×2 (16:48→22:31)
[2022-03-29 17:19] VITALS: BMI 29.0
[2022-03-29] MEDS ORDERED: chlordiazePOXIDE HCL 25 MG CAPSULE ONE (19:17)
[2022-03-29] MEDS ORDERED: hydrOXYzine PAMOATE 25 MG CAPSULE (FP) PO ONE (19:17)
[2022-03-29] MEDS: hydrOXYzine PAMOATE 25 MG CAPSULE (FP) PO SCH ×2 (19:24→21:19)
[2022-03-29] MEDS: chlordiazePOXIDE HCL 25 MG CAPSULE PO PRN (19:24)
[2022-03-29] MEDS ORDERED: METOPROLOL TARTRATE 25 MG TABLET (FP) PO ONE (20:42)
[2022-03-29] MEDS: PRENATAL VITAMINS W/ FOLIC ACID TABLET (FP) PO SCH (21:17)
[2022-03-29] MEDS: BUPRENORPHINE/NALOXONE 8 MG/2 MG FILM PACKET SL SCH (21:18)
[2022-03-29] MEDS: THIAMINE HCL 100 MG TABLET (FP) PO SCH (21:20)
[2022-03-29] MEDS: GABAPENTIN 300 MG CAPSULE PO SCH (21:20)
[2022-03-29] MEDS: MELATONIN 5 MG TABLETS PO SCH (22:31)
[2022-03-30] MEDS: chlordiazePOXIDE HCL 25 MG CAPSULE PO PRN ×2 (02:43→14:08)
[2022-03-30] MEDS: BENZOCAINE/MENTHOL (CHLORASEPTIC ) LOZENGE MM PRN ×3 (02:46→14:13)
[2022-03-30] MEDS: chlordiazePOXIDE HCL 25 MG CAPSULE PO SCH ×4 (05:50→23:05)
[2022-03-30] MEDS: GABAPENTIN 300 MG CAPSULE PO SCH ×3 (05:51→23:05)
[2022-03-30] MEDS: hydrOXYzine PAMOATE 25 MG CAPSULE (FP) PO SCH ×4 (05:51→19:01)
[2022-03-30] MEDS ORDERED: LEVOTHYROXINE NA 125 MCG TABLET (FP) PO SCH (07:00)
[2022-03-30] MEDS ORDERED: LEVOTHYROXINE 100 MCG, LEVOTHYROXINE 25 MCG PO ONE (09:45)
[2022-03-30] MEDS: ESCITALOPRAM OXALATE 20 MG TABLET PO SCH (10:06)
[2022-03-30] MEDS: BUPRENORPHINE/NALOXONE 8 MG/2 MG FILM PACKET SL SCH (10:06)
[2022-03-30] MEDS: PRENATAL VITAMINS W/ FOLIC ACID TABLET (FP) PO SCH (10:06)
[2022-03-30 11:01] LABS: HEMATOCRIT 37.7 % (32.4-45.2); HEMOGLOBIN 12.9 GM/dL (10.7-15.3); MCH 30.4 pg (25.7-33.7); MCHC 34.2 g/dl (32.0-36.0); MEAN CELL VOLUME 88.9 fl (80-96); MEAN PLT VOLUME 8.9 fl (7.5-11.1); PLATELET COUNT 158 10^3/uL (134-434); RBC 4.24 M/mm3 (3.60-5.2); RDW 14.5 % (11.6-15.6); WHITE BLOOD COUNT 6.8 K/mm3 (4.0-10.0)
[2022-03-30 11:28] LABS: CREATININE 0.7 mg/dL (0.55-1.3)
[2022-03-30 11:29] LABS: BILIRUBIN,TOTAL 2.5 mg/dL (0.2-1); TOT PROT 7.2 g/dl (6.4-8.2)
[2022-03-30 11:31] LABS: BLOOD UREA NITROGEN 15.4 mg/dL (7-18)
[2022-03-30 11:32] LABS: ALBUMIN 3.9 g/dl (3.4-5.0)
[2022-03-30 11:34] LABS: CALCIUM 9.4 mg/dL (8.5-10.1)
[2022-03-30] MEDS: THIAMINE HCL 100 MG TABLET (FP) PO SCH (23:05)
[2022-03-30] MEDS: ROSUVASTATIN CA 5 MG TABLET PO SCH (23:05)
[2022-03-30] MEDS: MELATONIN 5 MG TABLETS PO SCH (23:05)
[2022-03-31] MEDS: hydrOXYzine PAMOATE 25 MG CAPSULE (FP) PO SCH ×6 (00:02→23:20)
[2022-03-31 00:54] LABS: EPI CELLS 17 /uL (0-25.1); HYALINE CASTS 2 /uL (0-3.1); PH,URINE 5.5 (5.0-8.0); URINE APPEARANCE CLOUDY; URINE BACTERIA 23 /uL (0-1359); URINE BILIRUBIN 1+ (NEGATIVE); URINE COLOR DK YELLOW; URINE GLUCOSE (UA) NEGATIVE (NEGATIVE); URINE KETONE TRACE (NEGATIVE); URINE LEUK ESTERASE TRACE (NEGATIVE); URINE NITRITE NEGATIVE (NEGATIVE); URINE PROTEIN 1+ (NEGATIVE); URINE RBC 43 /uL (0-23.9); URINE WBC 16 /uL (0-25.8)
[2022-03-31 03:02] LABS: URINE CRYSTALS MANY /hpf
[2022-03-31] MEDS: chlordiazePOXIDE HCL 25 MG CAPSULE PO SCH ×4 (06:03→22:18)
[2022-03-31] MEDS: LEVOTHYROXINE 100 MCG, LEVOTHYROXINE 25 MCG PO SCH (06:03)
[2022-03-31] MEDS: GABAPENTIN 300 MG CAPSULE PO SCH ×3 (06:03→22:17)
[2022-03-31] MEDS: BENZOCAINE/MENTHOL (CHLORASEPTIC ) LOZENGE MM PRN (06:36)
[2022-03-31] MEDS: ESCITALOPRAM OXALATE 20 MG TABLET PO SCH (10:15)
[2022-03-31] MEDS: PRENATAL VITAMINS W/ FOLIC ACID TABLET (FP) PO SCH (10:15)
[2022-03-31] MEDS: BUPRENORPHINE/NALOXONE 8 MG/2 MG FILM PACKET SL SCH (10:16)
[2022-03-31] MEDS: chlordiazePOXIDE HCL 25 MG CAPSULE PO PRN (12:52)
[2022-03-31] MEDS: MELATONIN 5 MG TABLETS PO SCH (22:17)
[2022-03-31] MEDS: ROSUVASTATIN CA 5 MG TABLET PO SCH ×2 (23:18→23:19)
[2022-03-31] MEDS: THIAMINE HCL 100 MG TABLET (FP) PO SCH (23:20)
[2022-03-31] MEDS ORDERED: BUPRENORPHINE/NALOXONE 8 MG/2 MG FILM PACKET SL SCH (23:59)
[2022-04-01] MEDS ORDERED: hydrOXYzine PAMOATE 25 MG CAPSULE (FP) PO PRN
[2022-04-01] MEDS ORDERED: chlordiazePOXIDE HCL 10 MG CAPSULE PO PRN
[2022-04-01 00:14] LABS: SARS-CoV-2 NAA Not Detected (Not Detected)
[2022-04-01] MEDS: chlordiazePOXIDE HCL 10 MG CAPSULE PO SCH ×4 (06:22→22:21)
[2022-04-01] MEDS: LEVOTHYROXINE 100 MCG, LEVOTHYROXINE 25 MCG PO SCH (06:23)
[2022-04-01] MEDS: GABAPENTIN 300 MG CAPSULE PO SCH ×3 (06:23→22:21)
[2022-04-01] MEDS: ESCITALOPRAM OXALATE 20 MG TABLET PO SCH (10:31)
[2022-04-01] MEDS: PRENATAL VITAMINS W/ FOLIC ACID TABLET (FP) PO SCH (10:31)
[2022-04-01] MEDS: BUPRENORPHINE/NALOXONE 8 MG/2 MG FILM PACKET SL SCH ×2 (10:31→22:21)
[2022-04-01] MEDS: BENZOCAINE/MENTHOL (CHLORASEPTIC ) LOZENGE MM PRN ×2 (10:34→22:25)
[2022-04-01 10:40] LABS: ALBUMIN 3.1 g/dl (3.4-5.0)
[2022-04-01 10:43] LABS: BILIRUBIN,DIRECT 0.2 mg/dL (0.0-0.2)
[2022-04-01 10:45] LABS: BILIRUBIN,TOTAL 0.9 mg/dL (0.2-1); TOT PROT 5.9 g/dl (6.4-8.2)
[2022-04-01] MEDS: ROSUVASTATIN CA 5 MG TABLET PO SCH (22:21)
[2022-04-01] MEDS: METHOCARBAMOL 500 MG TABLET PO PRN (22:21)
[2022-04-01] MEDS: MELATONIN 5 MG TABLETS PO SCH (22:21)
[2022-04-01] MEDS: THIAMINE HCL 100 MG TABLET (FP) PO SCH (22:21)
[2022-04-02] MEDS: chlordiazePOXIDE HCL 10 MG CAPSULE PO SCH ×2 (06:44→18:27)
[2022-04-02] MEDS: METHOCARBAMOL 500 MG TABLET PO PRN ×2 (06:45→22:37)
[2022-04-02] MEDS: GABAPENTIN 300 MG CAPSULE PO SCH ×3 (06:45→22:38)
[2022-04-02] MEDS: LEVOTHYROXINE 100 MCG, LEVOTHYROXINE 25 MCG PO SCH (06:45)
[2022-04-02] MEDS: BENZOCAINE/MENTHOL (CHLORASEPTIC ) LOZENGE MM PRN ×2 (06:46→10:30)
[2022-04-02] MEDS: ESCITALOPRAM OXALATE 20 MG TABLET PO SCH (10:25)
[2022-04-02] MEDS: PRENATAL VITAMINS W/ FOLIC ACID TABLET (FP) PO SCH (10:25)
[2022-04-02] MEDS: BUPRENORPHINE/NALOXONE 8 MG/2 MG FILM PACKET SL SCH ×2 (10:29→22:37)
[2022-04-02] MEDS: MELATONIN 5 MG TABLETS PO SCH (22:38)
[2022-04-02] MEDS: THIAMINE HCL 100 MG TABLET (FP) PO SCH (22:38)
[2022-04-02] MEDS: ROSUVASTATIN CA 5 MG TABLET PO SCH (22:38)
[2022-04-03] MEDS ORDERED: chlordiazePOXIDE HCL 10 MG CAPSULE PO ONE (05:00)
[2022-04-03] MEDS: GABAPENTIN 300 MG CAPSULE PO SCH (05:46)
[2022-04-03] MEDS: LEVOTHYROXINE 100 MCG, LEVOTHYROXINE 25 MCG PO SCH (06:51)
[2022-04-03] MEDS: BENZOCAINE/MENTHOL (CHLORASEPTIC ) LOZENGE MM PRN (08:02)
[2022-04-03 09:10] VITALS: BP 135/87; PULSE 100; TEMP 97.1
[2022-04-03] MEDS: ESCITALOPRAM OXALATE 20 MG TABLET PO SCH (09:45)
[2022-04-03] MEDS: PRENATAL VITAMINS W/ FOLIC ACID TABLET (FP) PO SCH (09:45)
[2022-04-03] MEDS: BUPRENORPHINE/NALOXONE 8 MG/2 MG FILM PACKET SL SCH (09:45)
== END 2022-04-03 10:32 | disposition home or self-care (01) | DRG 897 ==
LOC: YASAS 13:39 → Y3N 19:39
PROVIDERS: ADMIT Allergy & Immunology; ATTEND Surgery
PROC: HZ2ZZZZ Detoxification Services for Substance Abuse Treatment (ICD-10-PCS; principal; 2022-03-29)
DX: F10.230 Alcohol dependence with withdrawal, uncomplicated (principal); F13.20 Sedative, hypnotic or anxiolytic dependence, uncomplicated; N17.9 Acute kidney failure, unspecified; F10.280 Alcohol dependence with alcohol-induced anxiety disorder; E03.9 Hypothyroidism, unspecified; E78.5 Hyperlipidemia, unspecified; B18.2 Chronic viral hepatitis C; M54.50 Low back pain, unspecified; G89.29 Other chronic pain; Z21 Asymptomatic human immunodeficiency virus [HIV] infection status; R94.5 Abnormal results of liver function studies; Z96.653 Presence of artificial knee joint, bilateral; Z87.891 Personal history of nicotine dependence; Z86.59 Personal history of other mental and behavioral disorders
CPT/HCPCS: 36415; 80053; 80076; 81003; 82140; 85027; 86780; 87086; C9803-CS; Q0162; U0003; U0005

== ENCOUNTER 2022-03-31 13:27 | Emergency (ER) | payer OTHER ==
[2022-03-31 13:40] VITALS: BP 130/72; PULSE 91; TEMP 98.3; BMI 29.0
[2022-03-31] MEDS ORDERED: SODIUM CHLORIDE 0.9% 500 ML INFUS.BAG IV ONE (14:05)
[2022-03-31] MEDS ORDERED: THIAMINE HCL 200 MG/2 ML VIAL IVPB ONE (14:10)
[2022-03-31] MEDS ORDERED: THIAMINE HCL 200 MG/2 ML VIAL ONE (14:45)
[2022-03-31 15:21] LABS: BASO % 0.7 % (0-2.0); EOS % 5.3 % (0-4.5); HEMATOCRIT 33.7 % (32.4-45.2); HEMOGLOBIN 11.2 GM/dL (10.7-15.3); LYMPH % 24.8 % (8-40); MCHC 33.2 g/dl (32.0-36.0); MEAN CELL VOLUME 90.2 fl (80-96); MEAN PLT VOLUME 8.8 fl (7.5-11.1); MONO % 6.1 % (3.8-10.2); NEUT % 63.1 % (42.8-82.8); PLATELET COUNT 137 10^3/uL (134-434); RBC 3.73 M/mm3 (3.60-5.2); RDW 14.3 % (11.6-15.6); WHITE BLOOD COUNT 5.5 K/mm3 (4.0-10.0)
[2022-03-31 15:33] LABS: INR 0.94 (0.83-1.09); PROTHROMBIN TIME (PATIENT) 10.8 SEC (9.7-13.0)
[2022-03-31 15:36] LABS: ACTIVATED PTT 25.5 SECONDS (25.2-36.5)
[2022-03-31 15:50] LABS: MAGNESIUM 1.8 mg/dL (1.8-2.4)
[2022-03-31 15:51] LABS: ALBUMIN 3.4 g/dl (3.4-5.0); BLOOD UREA NITROGEN 13.9 mg/dL (7-18)
[2022-03-31 15:53] LABS: CREATININE 0.7 mg/dL (0.55-1.3)
[2022-03-31 15:54] LABS: PHOSPHOROUS 3.9 mg/dL (2.5-4.9)
[2022-03-31 15:55] LABS: TOT PROT 6.6 g/dl (6.4-8.2)
[2022-03-31 15:56] LABS: BILIRUBIN,TOTAL 0.6 mg/dL (0.2-1)
[2022-03-31] MEDS ORDERED: KETOROLAC TROMETHAMINE 30 MG/1 ML VIAL IVPUSH ONE (16:24)
[2022-03-31] MEDS ORDERED: KETOROLAC TROMETHAMINE 30 MG/1 ML VIAL ONE (16:32)
[2022-03-31 18:02] LABS: PH,URINE 5.5 (5.0-8.0); URINE APPEARANCE CLEAR; URINE BILIRUBIN NEGATIVE (NEGATIVE); URINE COLOR YELLOW; URINE GLUCOSE (UA) NEGATIVE (NEGATIVE); URINE KETONE NEGATIVE (NEGATIVE); URINE LEUK ESTERASE NEGATIVE (NEGATIVE); URINE NITRITE NEGATIVE (NEGATIVE); URINE PROTEIN NEGATIVE (NEGATIVE); URINE UROBILINOGEN 0.2 mg/dL (0.2-1.0)
[2022-03-31] MEDS ORDERED: MAG HYDROX/AL HYDROX/SIMETH 30 ML UNIT-DOSE CUP PO ONE (19:20)
[2022-03-31] MEDS ORDERED: FAMOTIDINE 10 MG TABLET PO ONE (19:20)
[2022-03-31] MEDS ORDERED: SUCRALFATE 1 GM TABLET (FP) PO ONE (19:20)
[2022-03-31] MEDS ORDERED: FAMOTIDINE 10 MG TABLET ONE (19:34)
[2022-03-31] MEDS ORDERED: MAG HYDROX/AL HYDROX/SIMETH 30 ML UNIT-DOSE CUP ONE (19:34)
[2022-03-31] MEDS ORDERED: SUCRALFATE 1 GM TABLET (FP) ONE (19:34)
== END 2022-03-31 20:48 | disposition home or self-care (01) ==
LOC: JER 13:27
PROC: 3E0333Z Introduction of Anti-inflammatory into Peripheral Vein, Percutaneous Approach (ICD-10-PCS; principal; 2022-03-31)
PROC: 3E033GC Introduction of Other Therapeutic Substance into Peripheral Vein, Percutaneous Approach (ICD-10-PCS; 2022-03-31)
DX: R74.01 Elevation of levels of liver transaminase levels (principal)
CPT/HCPCS: 0241U-QW; 36415; 76705-TC; 80053; 80307; 81003; 82550; 82553; 83690; 83735; 84100; 85025; 85610; 85730; 87086; 93005; 93010; 99285-25

== ENCOUNTER 2022-07-11 19:12 | Inpatient (IN) | payer OTHER ==
[2022-07-11 22:06] LABS: BASO % 0.7 % (0-2.0); EOS % 3.4 % (0-4.5); HEMATOCRIT 30.9 % (32.4-45.2); HEMOGLOBIN 9.9 GM/dL (10.7-15.3); LYMPH % 39.6 % (8-40); MCH 25.9 pg (25.7-33.7); MCHC 32.1 g/dl (32.0-36.0); MEAN CELL VOLUME 80.6 fl (80-96); MEAN PLT VOLUME 7.5 fl (7.5-11.1); MONO % 5.1 % (3.8-10.2); NEUT % 51.2 % (42.8-82.8); PLATELET COUNT 340 10^3/uL (134-434); RBC 3.84 M/mm3 (3.60-5.2); RDW 19.6 % (11.6-15.6); WHITE BLOOD COUNT 5.8 K/mm3 (4.0-10.0)
[2022-07-11 22:12] LABS: PROTHROMBIN TIME (PATIENT) 11.5 SEC (9.7-13.0)
[2022-07-11 22:15] LABS: ACTIVATED PTT 26.2 SECONDS (25.2-36.5)
[2022-07-11 22:25] LABS: BLOOD UREA NITROGEN 11.6 mg/dL (7-18); CALCIUM 8.7 mg/dL (8.5-10.1)
[2022-07-11 22:28] LABS: CREATININE 0.7 mg/dL (0.55-1.3)
[2022-07-11 22:30] LABS: BILIRUBIN,TOTAL 0.2 mg/dL (0.2-1); TOT PROT 7.7 g/dl (6.4-8.2)
[2022-07-12] MEDS ORDERED: FOLIC ACID INJECTION - 1 MG, THIAMINE HCL 100 MG, MULTIVIT INJECTION ADULT 10 ML in SOD... IVPB ONE (06:30)
[2022-07-12] MEDS ORDERED: LEVOTHYROXINE NA 125 MCG TABLET (FP) PO SCH (07:00)
[2022-07-12] MEDS: ENOXAPARIN NA (PORCINE) 40 MG/0.4 ML DISP.SYRIN SQ SCH (09:37)
[2022-07-12] MEDS ORDERED: LORazepam 2 MG TABLET PO ONE (10:10)
[2022-07-12] MEDS: LORazepam 1 MG TABLET PO SCH ×3 (10:37→22:54)
[2022-07-12] MEDS ORDERED: LORazepam 2 MG TABLET PO SCH (11:00)
[2022-07-12] MEDS ORDERED: oxyCODONE HCL 5 MG TABLET ONE (13:07)
[2022-07-12] MEDS ORDERED: ACETAMINOPHEN 325 MG TABLET (FP) ONE (13:07)
[2022-07-12] MEDS ORDERED: GABAPENTIN 300 MG CAPSULE ONE (13:08)
[2022-07-12] MEDS: oxyCODONE HCL 5 MG TABLET PO SCH ×2 (13:13→22:55)
[2022-07-12] MEDS: ACETAMINOPHEN 325 MG TABLET (FP) PO SCH ×2 (13:13→22:56)
[2022-07-12] MEDS: GABAPENTIN 300 MG CAPSULE PO SCH ×2 (13:13→22:54)
[2022-07-12] MEDS: LORazepam 1 MG TABLET PO PRN (14:40)
[2022-07-12] MEDS ORDERED: LORazepam 1 MG TABLET ONE ×2 (14:40→18:02)
[2022-07-12 15:27] LABS: BASO % 0.9 % (0-2.0); EOS % 1.9 % (0-4.5); HEMATOCRIT 26.6 % (32.4-45.2); HEMOGLOBIN 8.4 GM/dL (10.7-15.3); LYMPH % 23.6 % (8-40); MCH 25.3 pg (25.7-33.7); MCHC 31.6 g/dl (32.0-36.0); MEAN CELL VOLUME 79.8 fl (80-96); MEAN PLT VOLUME 7.3 fl (7.5-11.1); MONO % 6.8 % (3.8-10.2); NEUT % 66.8 % (42.8-82.8); PLATELET COUNT 261 10^3/uL (134-434); RBC 3.33 M/mm3 (3.60-5.2); RDW 19.5 % (11.6-15.6); WHITE BLOOD COUNT 5.1 K/mm3 (4.0-10.0)
[2022-07-12 16:11] LABS: CALCIUM 8.2 mg/dL (8.5-10.1)
[2022-07-12 16:12] LABS: ALBUMIN 3.6 g/dl (3.4-5.0); MAGNESIUM 1.6 mg/dL (1.8-2.4)
[2022-07-12 16:15] LABS: CREATININE 0.6 mg/dL (0.55-1.3); PHOSPHOROUS 2.6 mg/dL (2.5-4.9)
[2022-07-12 16:16] LABS: BILIRUBIN,TOTAL 0.7 mg/dL (0.2-1)
[2022-07-12 16:17] LABS: TOT PROT 6.8 g/dl (6.4-8.2)
[2022-07-12] MEDS ORDERED: MAGNESIUM 2GM/50ML STERILE WATER IVPB IVPB ONE (17:33)
[2022-07-12] MEDS ORDERED: MAGNESIUM SULFATE IN WATER 2 GM/50 ML IVPB IVPB ONE (18:02)
[2022-07-12] MEDS ORDERED: ONDANSETRON 4 MG/2 ML VIAL IVPUSH PRN (18:56)
[2022-07-12 19:56] LABS: ERYTHROCYTE SEDIMENTATION RATE 12 mm/hr (0-30)
[2022-07-12 22:47] VITALS: BMI 30.7
[2022-07-12] MEDS: ROSUVASTATIN CA 5 MG TABLET PO SCH (22:54)
[2022-07-13] MEDS: LORazepam 1 MG TABLET PO PRN ×2 (01:54→16:02)
[2022-07-13] MEDS: oxyCODONE HCL 5 MG TABLET PO SCH ×4 (05:48→22:35)
[2022-07-13] MEDS: LORazepam 1 MG TABLET PO SCH ×4 (05:48→22:43)
[2022-07-13] MEDS: GABAPENTIN 300 MG CAPSULE PO SCH ×3 (05:48→21:35)
[2022-07-13] MEDS: ACETAMINOPHEN 325 MG TABLET (FP) PO SCH ×4 (05:49→22:35)
[2022-07-13] MEDS: LEVOTHYROXINE NA 100 MCG TABLET (FP) PO SCH (06:03)
[2022-07-13 08:25] LABS: BASO % 1.1 % (0-2.0); EOS % 6.4 % (0-4.5); HEMATOCRIT 26.7 % (32.4-45.2); HEMOGLOBIN 8.6 GM/dL (10.7-15.3); LYMPH % 26.1 % (8-40); MCH 25.8 pg (25.7-33.7); MCHC 32.4 g/dl (32.0-36.0); MEAN CELL VOLUME 79.5 fl (80-96); MEAN PLT VOLUME 7.8 fl (7.5-11.1); MONO % 7.6 % (3.8-10.2); NEUT % 58.8 % (42.8-82.8); PLATELET COUNT 244 10^3/uL (134-434); RBC 3.35 M/mm3 (3.60-5.2); RDW 19.7 % (11.6-15.6); WHITE BLOOD COUNT 3.1 K/mm3 (4.0-10.0)
[2022-07-13 08:46] LABS: ALBUMIN 3.7 g/dl (3.4-5.0); BLOOD UREA NITROGEN 9.8 mg/dL (7-18); CALCIUM 8.7 mg/dL (8.5-10.1); MAGNESIUM 2.5 mg/dL (1.8-2.4)
[2022-07-13 08:49] LABS: CREATININE 0.6 mg/dL (0.55-1.3); PHOSPHOROUS 3.4 mg/dL (2.5-4.9)
[2022-07-13 08:51] LABS: BILIRUBIN,TOTAL 1.1 mg/dL (0.2-1); TOT PROT 6.8 g/dl (6.4-8.2)
[2022-07-13] MEDS: ENOXAPARIN NA (PORCINE) 40 MG/0.4 ML DISP.SYRIN SQ SCH (09:36)
[2022-07-13] MEDS: ROSUVASTATIN CA 5 MG TABLET PO SCH (21:35)
[2022-07-14] MEDS: LORazepam 1 MG TABLET PO SCH ×4 (05:10→22:33)
[2022-07-14] MEDS: ACETAMINOPHEN 325 MG TABLET (FP) PO SCH ×3 (05:11→21:35)
[2022-07-14] MEDS: oxyCODONE HCL 5 MG TABLET PO SCH ×3 (05:12→21:36)
[2022-07-14] MEDS: LEVOTHYROXINE NA 100 MCG TABLET (FP) PO SCH (06:14)
[2022-07-14] MEDS: GABAPENTIN 300 MG CAPSULE PO SCH ×3 (06:14→21:35)
[2022-07-14 09:17] LABS: BASO % 1.1 % (0-2.0); EOS % 7.9 % (0-4.5); HEMATOCRIT 25.8 % (32.4-45.2); HEMOGLOBIN 8.4 GM/dL (10.7-15.3); LYMPH % 26.7 % (8-40); MCH 26.1 pg (25.7-33.7); MCHC 32.6 g/dl (32.0-36.0); MEAN PLT VOLUME 7.6 fl (7.5-11.1); MONO % 7.4 % (3.8-10.2); NEUT % 56.9 % (42.8-82.8); PLATELET COUNT 210 10^3/uL (134-434); RBC 3.23 M/mm3 (3.60-5.2); RDW 19.3 % (11.6-15.6); WHITE BLOOD COUNT 3.1 K/mm3 (4.0-10.0)
[2022-07-14] MEDS: ENOXAPARIN NA (PORCINE) 40 MG/0.4 ML DISP.SYRIN SQ SCH (09:55)
[2022-07-14] MEDS: amLODIPine BESYLATE 5 MG TABLET (FP) PO SCH (09:55)
[2022-07-14 09:56] LABS: CALCIUM 8.6 mg/dL (8.5-10.1)
[2022-07-14 09:57] LABS: ALBUMIN 3.4 g/dl (3.4-5.0)
[2022-07-14 09:58] LABS: MAGNESIUM 2.1 mg/dL (1.8-2.4)
[2022-07-14 10:00] LABS: PHOSPHOROUS 3.5 mg/dL (2.5-4.9)
[2022-07-14 10:01] LABS: BILIRUBIN,TOTAL 0.6 mg/dL (0.2-1); CREATININE 0.6 mg/dL (0.55-1.3); TOT PROT 6.7 g/dl (6.4-8.2)
[2022-07-14] MEDS: LORazepam 1 MG TABLET PO PRN ×2 (12:49→17:21)
[2022-07-14] MEDS: ROSUVASTATIN CA 5 MG TABLET PO SCH (21:35)
[2022-07-15] MEDS ORDERED: LORazepam 0.5 MG TABLET PO PRN
[2022-07-15] MEDS: LORazepam 0.5 MG TABLET PO SCH ×4 (05:19→22:16)
[2022-07-15] MEDS: oxyCODONE HCL 5 MG TABLET PO SCH ×3 (05:20→22:17)
[2022-07-15] MEDS: GABAPENTIN 300 MG CAPSULE PO SCH ×3 (05:20→22:16)
[2022-07-15] MEDS: ACETAMINOPHEN 325 MG TABLET (FP) PO SCH ×3 (05:21→22:19)
[2022-07-15] MEDS: LEVOTHYROXINE NA 100 MCG TABLET (FP) PO SCH (07:00)
[2022-07-15 07:36] LABS: BASO % 0.9 % (0-2.0); HEMATOCRIT 28.9 % (32.4-45.2); HEMOGLOBIN 8.9 GM/dL (10.7-15.3); MEAN CELL VOLUME 80.8 fl (80-96); MEAN PLT VOLUME 7.9 fl (7.5-11.1); MONO % 7.8 % (3.8-10.2); NEUT % 56.3 % (42.8-82.8); PLATELET COUNT 221 10^3/uL (134-434); RBC 3.58 M/mm3 (3.60-5.2); RDW 18.9 % (11.6-15.6); WHITE BLOOD COUNT 3.3 K/mm3 (4.0-10.0)
[2022-07-15 07:50] LABS: BLOOD UREA NITROGEN 10.6 mg/dL (7-18); CALCIUM 8.9 mg/dL (8.5-10.1)
[2022-07-15 07:51] LABS: ALBUMIN 3.9 g/dl (3.4-5.0); MAGNESIUM 2.1 mg/dL (1.8-2.4)
[2022-07-15 07:53] LABS: PHOSPHOROUS 3.4 mg/dL (2.5-4.9)
[2022-07-15 07:54] LABS: CREATININE 0.7 mg/dL (0.55-1.3)
[2022-07-15 07:55] LABS: BILIRUBIN,TOTAL 0.6 mg/dL (0.2-1); TOT PROT 7.3 g/dl (6.4-8.2)
[2022-07-15] MEDS ORDERED: IRON SUCROSE INJECTION 200 MG in SODIUM CHLORIDE 90 ML IVPB ONE (08:45)
[2022-07-15] MEDS: amLODIPine BESYLATE 5 MG TABLET (FP) PO SCH (09:29)
[2022-07-15] MEDS: ENOXAPARIN NA (PORCINE) 40 MG/0.4 ML DISP.SYRIN SQ SCH (09:30)
[2022-07-15] MEDS: ROSUVASTATIN CA 5 MG TABLET PO SCH (22:16)
[2022-07-16] MEDS ORDERED: LORazepam 0.5 MG TABLET PO ONE (05:00)
[2022-07-16] MEDS: ACETAMINOPHEN 325 MG TABLET (FP) PO SCH ×2 (05:31→13:59)
[2022-07-16] MEDS: oxyCODONE HCL 5 MG TABLET PO SCH ×2 (05:31→13:59)
[2022-07-16] MEDS: GABAPENTIN 300 MG CAPSULE PO SCH ×2 (05:32→14:00)
[2022-07-16] MEDS: LEVOTHYROXINE NA 100 MCG TABLET (FP) PO SCH (06:39)
[2022-07-16 07:10] VITALS: RESP 18
[2022-07-16 07:36] LABS: BASO % 1.3 % (0-2.0); EOS % 8.4 % (0-4.5); HEMATOCRIT 28.9 % (32.4-45.2); HEMOGLOBIN 9.5 GM/dL (10.7-15.3); LYMPH % 22.4 % (8-40); MCH 26.2 pg (25.7-33.7); MCHC 32.7 g/dl (32.0-36.0); MEAN PLT VOLUME 7.8 fl (7.5-11.1); MONO % 6.9 % (3.8-10.2); PLATELET COUNT 229 10^3/uL (134-434); RBC 3.61 M/mm3 (3.60-5.2); RDW 19.4 % (11.6-15.6); WHITE BLOOD COUNT 3.6 K/mm3 (4.0-10.0)
[2022-07-16 08:00] LABS: CALCIUM 9.1 mg/dL (8.5-10.1)
[2022-07-16 08:01] LABS: BLOOD UREA NITROGEN 13.4 mg/dL (7-18); MAGNESIUM 2.3 mg/dL (1.8-2.4)
[2022-07-16 08:04] LABS: CREATININE 0.6 mg/dL (0.55-1.3); PHOSPHOROUS 3.8 mg/dL (2.5-4.9)
[2022-07-16 08:05] LABS: BILIRUBIN,TOTAL 0.4 mg/dL (0.2-1); TOT PROT 7.4 g/dl (6.4-8.2)
[2022-07-16] MEDS: ENOXAPARIN NA (PORCINE) 40 MG/0.4 ML DISP.SYRIN SQ SCH (10:45)
[2022-07-16] MEDS: amLODIPine BESYLATE 5 MG TABLET (FP) PO SCH (10:45)
[2022-07-16] MEDS ORDERED: ACETAMINOPHEN 325 MG TABLET (FP) PO PRN (10:46)
[2022-07-16 11:07] VITALS: BP 146/88; PULSE 91; TEMP 98.3
== END 2022-07-16 14:27 | disposition home or self-care (01) | DRG 897 ==
LOC: JER 19:12 → JERBED 23:21 → J4W 07-12 21:58
PROVIDERS: ADMIT Hospitalist; ATTEND Internal Medicine
PROC: HZ2ZZZZ Detoxification Services for Substance Abuse Treatment (ICD-10-PCS; principal; 2022-07-11)
DX: F10.239 Alcohol dependence with withdrawal, unspecified (principal); E87.0 Hyperosmolality and hypernatremia; E03.9 Hypothyroidism, unspecified; E78.5 Hyperlipidemia, unspecified; F41.8 Other specified anxiety disorders; D50.9 Iron deficiency anemia, unspecified
CPT/HCPCS: 36415; 70450-TC; 70545-TC; 70552-TC; 71046-TC-FY; 72125-TC; 73110-TC-RT-FY; 73130-TC-RT-FY; 80053; 80307; 82272; 82607; 82728; 82746; 83540; 83550; 83735; 84100; 84466; 84484; 85025; 85045; 85610; 85651; 85730; 93005; 93010; 99285-25; A9579; C9803-CS; J1756; U0003; U0005